=== PATIENT | female | born 1960 | race Caucasian/White ===

== ENCOUNTER → 2022-04-16 | Outpatient (CLI) | payer BC ==
[2022-04-16 10:09] LABS: BASO # 0.05 K/mm3 (0.02-0.10); EOS # 0.31 K/mm3 (0.04-0.40); EOS % 4.7 % (1.0-5.0); HEMATOCRIT 42.6 % (37.0-47.0); HEMOGLOBIN 13.5 g/dL (12.5-16.0); LYMPH# 2.59 K/mm3 (1.50-4.00); MEAN CELL VOLUME 91 fl (78-100); MEAN CORPUSCULAR HEMOGLOBIN 29 pg (27-31); MEAN CORPUSCULAR HGB CONC 32 g/dL (33-37); MONO # 0.68 K/mm3 (0.20-0.80); NEU # 2.99 K/mm3 (1.40-6.50); RED CELL DISTRIBUTION WIDTH 14.6 % (11.5-14.5); WHITE BLOOD COUNT 6.7 K/mm3 (4.8-10.8)
[2022-04-16 10:13] LABS: ALBUMIN 4.2 g/dL (3.5-5.0)
[2022-04-16 10:14] LABS: CALCIUM 9.2 mg/dL (8.3-10.5)
[2022-04-16 10:30] LABS: PLATELET COUNT 299 K/mm3 (130-400)
[2022-04-16 11:00] LABS: TOTAL BILIRUBIN 0.6 mg/dL (0.2-1.2)
== END ==
LOC: LAB 09:46
PROVIDERS: Family Medicine
DX: D64.9 Anemia, unspecified (principal); E78.00 Pure hypercholesterolemia, unspecified; I10 Essential (primary) hypertension; E03.9 Hypothyroidism, unspecified; J30.2 Other seasonal allergic rhinitis; S09.90XA Unspecified injury of head, initial encounter; R73.9 Hyperglycemia, unspecified; Z78.9 Other specified health status

== ENCOUNTER → 2022-04-22 | Outpatient (CLI) | payer BC | LOC: RAD 10:16 | DX: G93.89 Other specified disorders of brain (principal); S09.90XA Unspecified injury of head, initial encounter; X58.XXXA Exposure to other specified factors, initial encounter ==

== ENCOUNTER → 2022-06-04 | Outpatient (CLI) | payer BC | LOC: RAD 16:31 | DX: M25.572 Pain in left ankle and joints of left foot (principal); M25.472 Effusion, left ankle; W19.XXXA Unspecified fall, initial encounter ==

== ENCOUNTER → 2023-01-14 | Outpatient (CLI) | payer BC ==
[~2023-01-14] MED LIST: CYCLOBENZAPRINE10 M1 PO; NORCO 325 MG-51 TA1 PO; ZOFRAN ODT4 MG PO
== END ==
LOC: RAD 09:35
DX: M79.604 Pain in right leg (principal); Z86.79 Personal history of other diseases of the circulatory system
CPT/HCPCS: Q9967

== ENCOUNTER → 2024-03-25 | Outpatient (CLI) | payer MEDICARE ==
[2024-05-16 11:56] LABS: ALBUMIN 4.2 g/dL (3.4-4.8); CALCIUM 9.7 mg/dL (8.3-10.5); TOTAL BILIRUBIN 0.4 mg/dL (0.2-1.2); TOTAL PROTEIN 8.4 g/dL (6.2-8.1)
[2024-05-16 12:09] LABS: BASO # 0.02 K/mm3 (0.02-0.10); EOS # 0.22 K/mm3 (0.04-0.40); EOS % 2.5 % (1.0-5.0); HEMATOCRIT 41.8 % (37.0-47.0); LYMPH# 2.75 K/mm3 (1.50-4.00); MEAN CELL VOLUME 92 fl (78-100); MEAN CORPUSCULAR HEMOGLOBIN 28 pg (27-31); MEAN CORPUSCULAR HGB CONC 31 g/dL (33-37); MEAN PLATELET VOLUME 10.7 fl (7.4-10.4); MONO # 0.95 K/mm3 (0.20-0.80); PLATELET COUNT 412 K/mm3 (130-400); RED BLOOD COUNT 4.57 M/mm3 (4.10-5.30); RED CELL DISTRIBUTION WIDTH 13.9 % (11.5-14.5); WHITE BLOOD COUNT 8.7 K/mm3 (4.8-10.8)
== END ==
LOC: LAB 12:30
PROVIDERS: Nurse Practitioner
DX: Z00.00 Encounter for general adult medical examination without abnormal findings (principal); E78.5 Hyperlipidemia, unspecified; R73.9 Hyperglycemia, unspecified; E03.9 Hypothyroidism, unspecified; R25.2 Cramp and spasm

== ENCOUNTER 2024-10-19 21:40 | Emergency (ER) | payer MEDICARE ==
[2024-10-19 21:45] VITALS: BP 135/55
== END 2024-10-19 22:58 | disposition home or self-care (01) ==
LOC: ED 21:40
DX: S06.0X0A Concussion without loss of consciousness, initial encounter (principal); I10 Essential (primary) hypertension; Z86.73 Personal history of transient ischemic attack (TIA), and cerebral infarction without residual deficits; Z79.899 Other long term (current) drug therapy; W11.XXXA Fall on and from ladder, initial encounter; W22.09XA Striking against other stationary object, initial encounter; Y92.000 Kitchen of unspecified non-institutional (private) residence as the place of occurrence of the external cause

== ENCOUNTER 2024-12-04 17:01 | Emergency (ER) | payer MEDICARE ==
[~2024-12-04] VITALS: Ht 147.3 cm; Wt 88.6 kg
[2024-12-04] MEDS ORDERED: LEVOTHYROXINE125 MCG PO (17:15)
[2024-12-04] MEDS ORDERED: HYDROCHLOROTH12.5 M1 PO (17:15)
[2024-12-04] MEDS ORDERED: LISINOPRIL20 MG (17:15)
[2024-12-04] MEDS ORDERED: PHENTERMINE H37.5 M2 PO (17:22)
[2024-12-04] MEDS ORDERED: Lidocaine 2% Jelly 5 GM TUBE TOP ONE (17:30)
[2024-12-04] MEDS ORDERED: Hydrocortisone 2.5% Cream 28.35 GM TUBE TOP ONE (17:30)
[2024-12-04] MEDS ORDERED: LIDOCAINE HC RC (17:33)
[2024-12-04 18:49] VITALS: BP 129/79
== END 2024-12-04 18:50 | disposition home or self-care (01) ==
LOC: ED 17:01
DX: K64.4 Residual hemorrhoidal skin tags (principal); K64.8 Other hemorrhoids; Z86.73 Personal history of transient ischemic attack (TIA), and cerebral infarction without residual deficits

== ENCOUNTER → 2024-12-07 | Outpatient (CLI) | payer MEDICARE ==
[~2024-12-07] MED LIST changes: +HYDROCHLOROTH12.5 M1 PO; +LEVOTHYROXINE125 MCG PO; +LIDOCAINE HC RC; +LISINOPRIL20 MG; +PHENTERMINE H37.5 M2 PO
[2024-12-07 17:22] LABS: BASO # 0.03 K/mm3 (0.02-0.10); EOS # 0.15 K/mm3 (0.04-0.40); HEMATOCRIT 40.3 % (37.0-47.0); HEMOGLOBIN 12.6 g/dL (12.5-16.0); LYMPH# 2.92 K/mm3 (1.50-4.00); MEAN CELL VOLUME 91 fl (78-100); MEAN CORPUSCULAR HEMOGLOBIN 28 pg (27-31); MEAN CORPUSCULAR HGB CONC 31 g/dL (33-37); MEAN PLATELET VOLUME 10.6 fl (7.4-10.4); MONO # 0.77 K/mm3 (0.20-0.80); NEU # 3.64 K/mm3 (1.40-6.50); PLATELET COUNT 327 K/mm3 (130-400); RED BLOOD COUNT 4.45 M/mm3 (4.10-5.30); RED CELL DISTRIBUTION WIDTH 14.5 % (11.5-14.5); WHITE BLOOD COUNT 7.5 K/mm3 (4.8-10.8)
[2024-12-07 17:29] LABS: ALBUMIN 4.1 g/dL (3.4-4.8); SODIUM 138 mmol/L (136-145)
[2024-12-07 17:30] LABS: CALCIUM 9.8 mg/dL (8.3-10.5)
[2024-12-07 17:31] LABS: GLUCOSE 103 mg/dL (65-105); TOTAL PROTEIN 8.5 g/dL (6.2-8.1)
[2024-12-07 17:33] LABS: CARBON DIOXIDE 23 mmol/L (23-31); TOTAL BILIRUBIN 0.5 mg/dL (0.2-1.2)
[2024-12-07 17:37] LABS: AST-SGOT 19 U/L (5-34)
[2024-12-07 17:38] LABS: ALT/SGPT 24 U/L (0-55)
[2024-12-07 17:47] LABS: TROPONIN-I < 0.030 ng/mL (0.00-0.033)
== END ==
LOC: LAB 16:42
PROVIDERS: Nurse Practitioner
DX: R07.9 Chest pain, unspecified (principal)

== ENCOUNTER 2024-12-16 04:37 | Emergency (ER) | payer MEDICARE ==
[~2024-12-16] VITALS: Ht 157.5 cm; Wt 88.6 kg
[2024-12-16] MEDS ORDERED: Lidocaine/EPINEPHrine/Tetracaine Topical Gel 3 ML SYRINGE TOP ONE (05:00)
[2024-12-16 05:16] LABS: BASO # 0.02 K/mm3 (0.02-0.10); EOS # 0.14 K/mm3 (0.04-0.40); EOS % 1.4 % (1.0-5.0); HEMATOCRIT 38.1 % (37.0-47.0); HEMOGLOBIN 11.9 g/dL (12.5-16.0); LYMPH# 3.42 K/mm3 (1.50-4.00); MEAN CELL VOLUME 90 fl (78-100); MEAN CORPUSCULAR HEMOGLOBIN 28 pg (27-31); MEAN CORPUSCULAR HGB CONC 31 g/dL (33-37); MEAN PLATELET VOLUME 10.9 fl (7.4-10.4); MONO # 0.96 K/mm3 (0.20-0.80); NEU # 5.76 K/mm3 (1.40-6.50); PLATELET COUNT 333 K/mm3 (130-400); RED BLOOD COUNT 4.22 M/mm3 (4.10-5.30); RED CELL DISTRIBUTION WIDTH 14.4 % (11.5-14.5); WHITE BLOOD COUNT 10.3 K/mm3 (4.8-10.8)
[2024-12-16 05:21] LABS: ALBUMIN 3.9 g/dL (3.4-4.8)
[2024-12-16 05:21] LABS: URINE APPEARANCE SLIGHTLY CLOUDY (CLEAR); URINE BILIRUBIN NEGATIVE (NEGATIVE); URINE BLOOD 1+ (NEGATIVE); URINE COLOR YELLOW (YELLOW); URINE GLUCOSE NEGATIVE (NEGATIVE); URINE KETONE NEGATIVE (NEGATIVE); URINE LEUKOCYTE ESTERASE 1+ (NEGATIVE); URINE NITRATE NEGATIVE (NEGATIVE); URINE PROTEIN(semi-quant) NEGATIVE (NEGATIVE)
[2024-12-16 05:22] LABS: CALCIUM 8.9 mg/dL (8.3-10.5)
[2024-12-16 05:23] LABS: TOTAL PROTEIN 8.2 g/dL (6.2-8.1)
[2024-12-16 05:25] LABS: TOTAL BILIRUBIN 0.4 mg/dL (0.2-1.2)
[2024-12-16] MEDS ORDERED: NS 100 ML IV SCH (05:42)
[2024-12-16] MEDS ORDERED: Iohexol 300 - 100 ML VIAL IV ONE (05:45)
[2024-12-16] MEDS ORDERED: Morphine 4 MG/ML VIAL IV ONE (06:15)
[2024-12-16 06:49] VITALS: BP 120/71
== END 2024-12-16 06:49 | disposition short-term general hospital (02) ==
LOC: ED 04:37
PROVIDERS: Family Medicine
DX: K60.2 Anal fissure, unspecified (principal); Z86.73 Personal history of transient ischemic attack (TIA), and cerebral infarction without residual deficits
CPT/HCPCS: J2270; Q9967